=== PATIENT | male | born 1990 | race Two or more races ===

== ENCOUNTER 2018-10-31 14:07 | Emergency (ER) | payer MEDICAID ==
[~2018-10-31] VITALS: Ht 172.7 cm; Wt 106.6 kg
[2018-10-31 15:13] LABS: Mean Corpuscular Hemoglobin 30.7 pg (28.0-32.0)
[2018-10-31 15:21] LABS: Alanine Aminotransferase 91 U/L (16-61); Anion Gap 12 (5-15); Aspartate Aminotransferase 31 U/L (15-37); BUN/Creatinine Ratio 26.4; Blood Urea Nitrogen 23 mg/dL (7-18); Calcium 8.7 mg/dL (8.5-10.1); Carbon Dioxide 19 mmol/L (21-32); Chloride 109 mmol/L (98-107); GFR African American 135 mL/min; GFR Non-African American 112 mL/min; Glucose 131 mg/dL (74-106); Potassium 4.4 mmol/L (3.5-5.1); Sodium 140 mmol/L (136-145)
[2018-10-31 15:24] LABS: Alkaline Phosphatase 75 U/L (45-117); Bilirubin, Total 0.7 mg/dL (0.2-1.0); Total Protein 8.8 g/dL (6.4-8.2)
[2018-10-31 15:33] LABS: Urine Amorphous Crystal FEW /hpf (None Seen); Urine Bacteria NONE SEEN /hpf (None Seen); Urine Blood Negative /uL (Negative); Urine Mucus MANY (None Seen); Urine Specific Gravity 1.035 (1.001-1.035); Urine WBC 1 /hpf (0 - 3)
[2018-10-31 15:34] LABS: Hematocrit 51.7 % (41.0-53.0); Hemoglobin 17.3 g/dL (13.5-17.5); Mean Corpuscular Hgb Conc. 33.5 g/dL (32.0-36.0); Mean Corpuscular Volume 91.8 fL (80.0-100.0); Platelet Count (auto) 352 10^3/uL (140-450); Red Blood Cells 5.63 10^6/uL (4.5-5.90); Red Cell Distribution Width 13.3 % (11.8-14.3)
[2018-10-31 15:39] LABS: Band Neutrophils % (manual) 0; Basophils % (manual) 0 (0.0-2.0); Blast Cells 0; Eosinophils % (manual) 0 (0-7); Metamyelocytes % 0; Myelocytes % 0; Promyelocytes % 0; Reactive Lymphocytes 0
[2018-10-31 16:18] LABS: Lymphocytes % (manual) 3 (10.0-50.0); Monocytes % (manual) 6 (0-12)
[2018-10-31 17:49] VITALS: BP 123/79
== END 2018-10-31 17:54 | disposition home or self-care (01) ==
LOC: ER 14:11
DX: K52.9 Noninfective gastroenteritis and colitis, unspecified (principal); B34.9 Viral infection, unspecified
CPT/HCPCS: 36415; 71046; 80053; 81001; 82962; 85007; 85027

== ENCOUNTER 2021-02-10 14:53 | Inpatient (IN) | payer OTHER ==
[~2021-02-10] VITALS: Ht 172.7 cm; Wt 99.0 kg
[2021-02-10] MEDS ORDERED: DOXYCYCLINE 100MG/250ML 250 ML IV ONE (15:15)
[2021-02-10] MEDS ORDERED: DexAMETHasone SOD PHOS 10MG/1ML VIAL INJ IV ONE (15:15)
[2021-02-10] MEDS ORDERED: AZITHROMYCIN 500MG/ 250ML 250 ML IV ONE (15:15)
[2021-02-10] MEDS ORDERED: ASCORBIC ACID 500 MG TAB PO ONE (15:15)
[2021-02-10] MEDS ORDERED: ZINC SULFATE 220mg CAP or TAB PO ONE (15:15)
[2021-02-10 15:48] LABS: Basophils # (auto) 0 10 ^3/uL (0-0.2); Basophils % (auto) 0.4 % (0.0-2.0); Eosinophils # (auto) 0 10 ^3/uL (0-0.8); Hematocrit 46.7 % (41.0-53.0); Hemoglobin 16.1 g/dL (13.5-17.5); Lymphocytes # (auto) 0.6 10 ^3/uL (0.4-5.4); Mean Corpuscular Hemoglobin 30.5 pg (28.0-32.0); Mean Corpuscular Hgb Conc. 34.6 g/dL (32.0-36.0); Mean Corpuscular Volume 88.2 fL (80.0-100.0); Monocytes # (auto) 0.4 10 ^3/uL (0-1.3); Monocytes % (auto) 8.1 % (0.0-12.0); Neutrophils # (auto) 3.9 10 ^3/uL (1.6-8.6); Neutrophils % (auto) 78.5 % (37.0-80.0); Nucleated Red Blood Cells % 0.1 %; Red Blood Cells 5.29 10^6/uL (4.5-5.90)
[2021-02-10 16:05] LABS: Albumin 3.4 g/dL (3.4-5.0); Anion Gap 8 (5-15); Blood Urea Nitrogen 11 mg/dL (7-18); Calcium 8.8 mg/dL (8.5-10.1); Carbon Dioxide 23 mmol/L (21-32); Chloride 104 mmol/L (98-107); Glucose 128 mg/dL (74-106); Potassium 3.8 mmol/L (3.5-5.1); Sodium 135 mmol/L (136-145)
[2021-02-10 16:11] LABS: Alanine Aminotransferase 43 U/L (16-61); Alkaline Phosphatase 55 U/L (45-117); Aspartate Aminotransferase 34 U/L (15-37); BUN/Creatinine Ratio 14.7; Bilirubin, Total 0.4 mg/dL (0.2-1.0); GFR African American 158 mL/min; GFR Non-African American 131 mL/min; Total Protein 8.5 g/dL (6.4-8.2)
[2021-02-10 16:18] LABS: INR 0.99 (0.9-1.15); Partial Thromboplastin Time 28.4 sec (23.6-33.0)
[2021-02-10 22:38] LABS: Urine Bacteria NONE SEEN /hpf (None Seen); Urine Blood Negative /uL (Negative); Urine Mucus FEW (None Seen); Urine Specific Gravity 1.017 (1.001-1.035); Urine WBC 2 /hpf (0 - 3)
[2021-02-11] MEDS ORDERED: ACETAMINOPHEN 500 MG TAB PO PRN (07:30)
[2021-02-11] MEDS ORDERED: MORPHINE SULFATE INJECTION 2 MG/ML SYRG IV PRN (07:30)
[2021-02-11] MEDS ORDERED: HYDROcodone-ACET 5/325MG TAB PO PRN (07:30)
[2021-02-11] MEDS ORDERED: NITROGLYCERIN 0.4 MG SL TAB SL PRN (07:30)
[2021-02-11] MEDS ORDERED: DOCUSATE SOD 100 MG CAP PO PRN (07:30)
[2021-02-11] MEDS ORDERED: ONDANSETRON HCL 4 MG/2 ML VIAL IV PRN (07:30)
[2021-02-11] MEDS ORDERED: IOHEXOL 350 MG/ML 100ML IJ ONE (08:05)
[2021-02-11] MEDS: cefTRIAXone 1GM/50ML D5W 50 ML IV SCH (09:23)
[2021-02-11 09:34] VITALS: BP 118/70
[2021-02-11] MEDS: BUDESONIDE (INHALATION) 180 MCG IH IN SCH ×2 (09:34→20:54)
[2021-02-11] MEDS: ALBUTEROL SULF HFA 90MCG INH 200DOSE IN PRN ×2 (09:34→20:54)
[2021-02-11] MEDS: DOXYCYCLINE 100MG/250ML 250 ML IV SCH ×2 (10:35→23:00)
[2021-02-11] MEDS: FAMOTIDINE (10MG/ML) 2ML VL IV SCH ×2 (10:35→23:00)
[2021-02-11] MEDS: DexAMETHasone SOD PHOS 10MG/1ML VIAL INJ IV SCH (10:35)
[2021-02-11] MEDS: CHOLECALCIFEROL (VITD3) 2,000 UNIT CAP/TAB PO SCH (10:36)
[2021-02-11] MEDS: ZINC SULFATE 220mg CAP or TAB PO SCH (10:36)
[2021-02-11] MEDS: ASCORBIC ACID 1,000 MG TAB PO SCH (10:36)
[2021-02-11] MEDS: ENOXAPARIN SOD 40 MG/0.4 ML SYRINGE SC SCH ×2 (10:36→23:00)
[2021-02-11] MEDS ORDERED: REMDESIVIR PER PHARMACY 0 ML IV SCH (11:15)
[2021-02-11 13:00] VITALS: BP 131/73
[2021-02-11] MEDS ORDERED: guaiFENesin-DM 100/10mg/5ml SYR PO PRN (13:15)
[2021-02-11] MEDS: SODIUM CHLOR 0.9% PF (SALINE LOCK) 10ML VIAL/SYR IV SCH ×2 (14:00→23:00)
[2021-02-11] MEDS ORDERED: REMDESIVIR 200 MG in NS 210ml LOADING DOSE ADULT IV ONE (15:00)
[2021-02-11 17:00] VITALS: BP 138/89
[2021-02-11] MEDS: MULTIPLE VITAMIN TAB PO SCH (17:34)
[2021-02-11 22:00] VITALS: BP 127/79
[2021-02-12 05:00] VITALS: BP 130/76
[2021-02-12] MEDS: SODIUM CHLOR 0.9% PF (SALINE LOCK) 10ML VIAL/SYR IV SCH ×3 (06:16→22:10)
[2021-02-12 06:38] LABS: Basophils # (auto) 0 10 ^3/uL (0-0.2); Basophils % (auto) 0.2 % (0.0-2.0); Eosinophils # (auto) 0 10 ^3/uL (0-0.8); Hematocrit 41.8 % (41.0-53.0); Hemoglobin 14.6 g/dL (13.5-17.5); Lymphocytes # (auto) 0.5 10 ^3/uL (0.4-5.4); Lymphocytes % (auto) 12.4 % (10.0-50.0); Mean Corpuscular Hemoglobin 30.9 pg (28.0-32.0); Mean Corpuscular Volume 88.2 fL (80.0-100.0); Monocytes # (auto) 0.3 10 ^3/uL (0-1.3); Monocytes % (auto) 6.5 % (0.0-12.0); Neutrophils # (auto) 3.5 10 ^3/uL (1.6-8.6); Neutrophils % (auto) 80.9 % (37.0-80.0); Nucleated Red Blood Cells % 0.2 %; Red Blood Cells 4.74 10^6/uL (4.5-5.90); Red Cell Distribution Width 12.7 % (11.8-14.3); White Blood Cell 4.3 10^3/uL (4.4-10.8)
[2021-02-12 06:44] LABS: Potassium 3.8 mmol/L (3.5-5.1)
[2021-02-12 06:52] LABS: Albumin 2.9 g/dL (3.4-5.0); BUN/Creatinine Ratio 23.9; Bilirubin, Total 0.4 mg/dL (0.2-1.0); Calcium 8.7 mg/dL (8.5-10.1); Total Protein 7.5 g/dL (6.4-8.2)
[2021-02-12 09:00] VITALS: BP 123/71
[2021-02-12] MEDS: cefTRIAXone 1GM/50ML D5W 50 ML IV SCH (09:04)
[2021-02-12] MEDS: DOXYCYCLINE 100MG/250ML 250 ML IV SCH (09:05)
[2021-02-12] MEDS: FAMOTIDINE (10MG/ML) 2ML VL IV SCH ×2 (09:05→22:10)
[2021-02-12] MEDS: DexAMETHasone SOD PHOS 10MG/1ML VIAL INJ IV SCH (09:05)
[2021-02-12] MEDS: MULTIPLE VITAMIN TAB PO SCH (09:05)
[2021-02-12] MEDS: ZINC SULFATE 220mg CAP or TAB PO SCH (09:05)
[2021-02-12] MEDS: ASCORBIC ACID 1,000 MG TAB PO SCH (09:06)
[2021-02-12] MEDS: ENOXAPARIN SOD 40 MG/0.4 ML SYRINGE SC SCH ×2 (09:06→22:10)
[2021-02-12] MEDS: CHOLECALCIFEROL (VITD3) 2,000 UNIT CAP/TAB PO SCH (09:06)
[2021-02-12] MEDS: ALBUTEROL SULF HFA 90MCG INH 200DOSE IN PRN ×2 (09:10→22:26)
[2021-02-12] MEDS: BUDESONIDE (INHALATION) 180 MCG IH IN SCH ×2 (09:11→22:26)
[2021-02-12 13:00] VITALS: BP 132/75
[2021-02-12] MEDS ORDERED: AZITHROMYCIN 250 MG TAB PO ONE (13:45)
[2021-02-12] MEDS ORDERED: FUROSEMIDE 20 MG/2 ML VIAL IV ONE (14:00)
[2021-02-12] MEDS ORDERED: POTASSIUM EFFERVESENT TAB 25 MEQ PO ONE (14:00)
[2021-02-12] MEDS: REMDESIVIR 100mg 100 MG in SODIUM CHL 0.9% 230 ML IV SCH (15:36)
[2021-02-12 17:00] VITALS: BP 121/82
[2021-02-12 20:00] VITALS: BP 128/84
[2021-02-12 22:00] VITALS: BP 128/84
[2021-02-13 05:00] VITALS: BP 112/74
[2021-02-13] MEDS: BUDESONIDE (INHALATION) 180 MCG IH IN SCH ×2 (05:58→21:50)
[2021-02-13] MEDS: ALBUTEROL SULF HFA 90MCG INH 200DOSE IN PRN ×2 (05:58→21:50)
[2021-02-13] MEDS: SODIUM CHLOR 0.9% PF (SALINE LOCK) 10ML VIAL/SYR IV SCH ×3 (06:00→22:00)
[2021-02-13 06:53] LABS: Albumin 2.7 g/dL (3.4-5.0); Calcium 8.3 mg/dL (8.5-10.1); Potassium 3.6 mmol/L (3.5-5.1)
[2021-02-13 06:57] LABS: BUN/Creatinine Ratio 29.7; Bilirubin, Total 0.3 mg/dL (0.2-1.0); Total Protein 6.9 g/dL (6.4-8.2)
[2021-02-13 09:00] VITALS: BP 118/66
[2021-02-13] MEDS: cefTRIAXone 1GM/50ML D5W 50 ML IV SCH (09:26)
[2021-02-13] MEDS: FUROSEMIDE 20 MG/2 ML VIAL IV SCH (09:26)
[2021-02-13] MEDS: FAMOTIDINE (10MG/ML) 2ML VL IV SCH ×2 (09:26→22:00)
[2021-02-13] MEDS: DexAMETHasone SOD PHOS 10MG/1ML VIAL INJ IV SCH (09:26)
[2021-02-13] MEDS: ZINC SULFATE 220mg CAP or TAB PO SCH (09:27)
[2021-02-13] MEDS: POTASSIUM EFFERVESENT TAB 25 MEQ PO SCH (09:27)
[2021-02-13] MEDS: MULTIPLE VITAMIN TAB PO SCH (09:27)
[2021-02-13] MEDS: CHOLECALCIFEROL (VITD3) 2,000 UNIT CAP/TAB PO SCH (09:40)
[2021-02-13] MEDS: AZITHROMYCIN 250 MG TAB PO SCH (09:40)
[2021-02-13] MEDS: ASCORBIC ACID 1,000 MG TAB PO SCH (09:40)
[2021-02-13] MEDS: ENOXAPARIN SOD 40 MG/0.4 ML SYRINGE SC SCH ×2 (09:48→22:00)
[2021-02-13 13:00] VITALS: BP 113/76
[2021-02-13] MEDS: REMDESIVIR 100mg 100 MG in SODIUM CHL 0.9% 230 ML IV SCH (15:00)
[2021-02-13 17:29] VITALS: BP 121/74
[2021-02-13 20:00] VITALS: BP 114/71
[2021-02-13 22:02] VITALS: BP 114/71
[2021-02-14 05:22] VITALS: BP 99/64
[2021-02-14] MEDS: SODIUM CHLOR 0.9% PF (SALINE LOCK) 10ML VIAL/SYR IV SCH ×3 (06:00→21:32)
[2021-02-14 06:31] LABS: Basophils # (auto) 0 10 ^3/uL (0-0.2); Basophils % (auto) 0.1 % (0.0-2.0); Eosinophils # (auto) 0 10 ^3/uL (0-0.8); Eosinophils % (auto) 0.1 % (0.0-7.0); Hemoglobin 14.5 g/dL (13.5-17.5); Lymphocytes # (auto) 1.1 10 ^3/uL (0.4-5.4); Lymphocytes % (auto) 22.9 % (10.0-50.0); Mean Corpuscular Hemoglobin 31.2 pg (28.0-32.0); Mean Corpuscular Hgb Conc. 34.7 g/dL (32.0-36.0); Monocytes # (auto) 0.7 10 ^3/uL (0-1.3); Monocytes % (auto) 14.3 % (0.0-12.0); Neutrophils # (auto) 3.1 10 ^3/uL (1.6-8.6); Neutrophils % (auto) 62.6 % (37.0-80.0); Nucleated Red Blood Cells % 0.1 %; Red Blood Cells 4.66 10^6/uL (4.5-5.90); Red Cell Distribution Width 12.7 % (11.8-14.3)
[2021-02-14 07:00] LABS: Albumin 2.6 g/dL (3.4-5.0); Calcium 7.8 mg/dL (8.5-10.1); Potassium 3.9 mmol/L (3.5-5.1)
[2021-02-14 07:04] LABS: BUN/Creatinine Ratio 26.6; Bilirubin, Total 0.3 mg/dL (0.2-1.0); Total Protein 6.7 g/dL (6.4-8.2)
[2021-02-14] MEDS: cefTRIAXone 1GM/50ML D5W 50 ML IV SCH (08:33)
[2021-02-14] MEDS: DexAMETHasone SOD PHOS 10MG/1ML VIAL INJ IV SCH (08:33)
[2021-02-14] MEDS: FAMOTIDINE (10MG/ML) 2ML VL IV SCH ×2 (08:34→21:32)
[2021-02-14] MEDS: FUROSEMIDE 20 MG/2 ML VIAL IV SCH (08:34)
[2021-02-14] MEDS: ZINC SULFATE 220mg CAP or TAB PO SCH (08:34)
[2021-02-14] MEDS: POTASSIUM EFFERVESENT TAB 25 MEQ PO SCH (08:35)
[2021-02-14] MEDS: MULTIPLE VITAMIN TAB PO SCH (08:37)
[2021-02-14] MEDS: CHOLECALCIFEROL (VITD3) 2,000 UNIT CAP/TAB PO SCH (08:38)
[2021-02-14] MEDS: ENOXAPARIN SOD 40 MG/0.4 ML SYRINGE SC SCH ×2 (08:38→21:32)
[2021-02-14] MEDS: ASCORBIC ACID 1,000 MG TAB PO SCH (08:38)
[2021-02-14] MEDS: AZITHROMYCIN 250 MG TAB PO SCH (08:38)
[2021-02-14] MEDS: ALBUTEROL SULF HFA 90MCG INH 200DOSE IN PRN ×2 (09:02→20:47)
[2021-02-14] MEDS: BUDESONIDE (INHALATION) 180 MCG IH IN SCH ×2 (09:02→20:47)
[2021-02-14 10:10] VITALS: BP 105/66
[2021-02-14 11:46] VITALS: BP 109/64
[2021-02-14 13:29] VITALS: BP 111/70
[2021-02-14 17:00] VITALS: BP 116/62
[2021-02-14] MEDS: REMDESIVIR 100mg 100 MG in SODIUM CHL 0.9% 230 ML IV SCH (17:14)
[2021-02-14 22:00] VITALS: BP 114/69
[2021-02-15 05:00] VITALS: BP 106/69
[2021-02-15] MEDS: SODIUM CHLOR 0.9% PF (SALINE LOCK) 10ML VIAL/SYR IV SCH ×2 (06:00→14:01)
[2021-02-15] MEDS: BUDESONIDE (INHALATION) 180 MCG IH IN SCH (06:07)
[2021-02-15] MEDS: ALBUTEROL SULF HFA 90MCG INH 200DOSE IN PRN (06:07)
[2021-02-15 06:37] LABS: Basophils # (auto) 0 10 ^3/uL (0-0.2); Basophils % (auto) 0.5 % (0.0-2.0); Eosinophils # (auto) 0 10 ^3/uL (0-0.8); Eosinophils % (auto) 0.1 % (0.0-7.0); Hematocrit 41.3 % (41.0-53.0); Hemoglobin 14.3 g/dL (13.5-17.5); Lymphocytes # (auto) 1.2 10 ^3/uL (0.4-5.4); Lymphocytes % (auto) 24.8 % (10.0-50.0); Mean Corpuscular Hemoglobin 30.7 pg (28.0-32.0); Mean Corpuscular Hgb Conc. 34.5 g/dL (32.0-36.0); Mean Corpuscular Volume 88.9 fL (80.0-100.0); Monocytes # (auto) 0.7 10 ^3/uL (0-1.3); Monocytes % (auto) 14.1 % (0.0-12.0); Neutrophils % (auto) 60.5 % (37.0-80.0); Nucleated Red Blood Cells % 0.1 %; Red Blood Cells 4.65 10^6/uL (4.5-5.90); Red Cell Distribution Width 12.7 % (11.8-14.3)
[2021-02-15 06:41] LABS: Albumin 2.6 g/dL (3.4-5.0); CRP High Sensitivity 0.74 mg/dL (< 0.3); Calcium 7.9 mg/dL (8.5-10.1); Potassium 3.6 mmol/L (3.5-5.1)
[2021-02-15 06:44] LABS: BUN/Creatinine Ratio 24.6; Bilirubin, Total 0.3 mg/dL (0.2-1.0); Total Protein 6.6 g/dL (6.4-8.2)
[2021-02-15] MEDS: cefTRIAXone 1GM/50ML D5W 50 ML IV SCH (08:13)
[2021-02-15] MEDS: FAMOTIDINE (10MG/ML) 2ML VL IV SCH (08:14)
[2021-02-15] MEDS: DexAMETHasone SOD PHOS 10MG/1ML VIAL INJ IV SCH (08:14)
[2021-02-15] MEDS: ASCORBIC ACID 1,000 MG TAB PO SCH (08:15)
[2021-02-15] MEDS: POTASSIUM EFFERVESENT TAB 25 MEQ PO SCH (08:15)
[2021-02-15] MEDS: MULTIPLE VITAMIN TAB PO SCH (08:15)
[2021-02-15] MEDS: ENOXAPARIN SOD 40 MG/0.4 ML SYRINGE SC SCH (08:16)
[2021-02-15] MEDS: AZITHROMYCIN 250 MG TAB PO SCH (08:16)
[2021-02-15] MEDS: CHOLECALCIFEROL (VITD3) 2,000 UNIT CAP/TAB PO SCH (08:16)
[2021-02-15] MEDS: ZINC SULFATE 220mg CAP or TAB PO SCH (08:17)
[2021-02-15] MEDS: FUROSEMIDE 20 MG/2 ML VIAL IV SCH (08:18)
[2021-02-15 09:30] VITALS: BP 108/62
[2021-02-15] MEDS ORDERED: ASCO10003 PO (11:35)
[2021-02-15] MEDS ORDERED: CHOL1CAP47 PO (11:35)
[2021-02-15 12:23] VITALS: BP 126/78
[2021-02-15 13:30] VITALS: BP 109/60
[2021-02-15] MEDS: REMDESIVIR 100mg 100 MG in SODIUM CHL 0.9% 230 ML IV SCH (14:53)
== END 2021-02-15 16:33 | disposition home or self-care (01) | DRG 871 ==
LOC: ER 14:53 → TELE 02-11 07:22 → TELE-EAST 02-11 13:25
PROVIDERS: ADMIT Nurse Practitioner Family; ATTEND Internal Medicine Pulmonary Disease
PROC: XW033E5 Introduction of Remdesivir Anti-infective into Peripheral Vein, Percutaneous Approach, New Technology Group 5 (ICD-10-PCS; principal; 2021-02-11)
DX: A41.89 Other specified sepsis (principal); U07.1 COVID-19; J12.82 Pneumonia due to coronavirus disease 2019; J96.01 Acute respiratory failure with hypoxia; R65.20 Severe sepsis without septic shock; I25.10 Atherosclerotic heart disease of native coronary artery without angina pectoris; E66.9 Obesity, unspecified; Z68.36 Body mass index [BMI] 36.0-36.9, adult
CPT/HCPCS: 36415; 71045; 71250; 71275; 80053; 81001; 82728; 83036; 83615; 83735; 84484; 85025; 85379; 85610; 85730; 86141; 87426; 93005; 94640; 96365; 96367; 96368; 96375; 99291; G0378; J0696; J1100; J3490

== ENCOUNTER → 2022-06-01 | Outpatient (CLI) | payer OTHER ==
[~2022-06-01] MED LIST: ASCO10003 PO; CHOL1CAP47 PO
== END | disposition home or self-care (01) ==
LOC: Rad HDHVI 15:54
PROVIDERS: ATTEND Internal Medicine Cardiovascular Disease
DX: R07.89 Other chest pain (principal)
CPT/HCPCS: 93306